=== PATIENT | male | born 1975 | race Caucasian/White ===

== ENCOUNTER 2019-06-01 18:17 | Emergency (ER) | payer SELFPAY ==
[~2019-06-01] VITALS: Ht 180.3 cm; Wt 80.4 kg
[2019-06-01 18:34] VITALS: BP 105/70
== END 2019-06-01 20:42 | disposition left against medical advice (07) ==
LOC: ER 18:17
DX: Z53.21 Procedure and treatment not carried out due to patient leaving prior to being seen by health care provider (principal); R55 Syncope and collapse
CPT/HCPCS: 82962